=== PATIENT | female | born 2005 | race Two or more races ===

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

== ENCOUNTER 2024-10-11 14:25 | Emergency (ER) | payer SELFPAY ==
--- NOTE | ~2024-10-11 | XR_ITS ---
EXAMINATION: XR chest 2V Exam Date/Time: 10/11/2024 15:18 CDT HISTORY: syncopal episode Comparison: 07/03/2015. RESULT: Lines, tubes, and devices: None. Lungs and pleura: Mild patchy left basilar airspace disease with partial loss of the hemidiaphragm s hadow in the lateral view. Cardiomediastinal silhouette: Stable. Other: No acute osseous or upper abdominal finding. IMPRESSION: Patchy subsegmental left basilar atelectasis/consolidation. Aspiration could be considered given the history of syncope. Reviewed, dictated and finalized at location K.
--- OUTSIDE RECORDS SUMMARY | 2024-10-11 14:26 | XMS_ITS | Clinical Summary ---
Author Organization [facility] Address [address] [place] [address] Care Team Providers Care Senior Technical Program Manager Name Role Phone Yvonne Oneill MD Primary Care Provider Source Comments [facility] [employer],non-owned Affiliates and Associated Physician Practices is amultiple site organization consisting of ambulatory clinics and hospital sitesin [place], [place], [place] and [place]. This disclosure is being madepursuant to the Care Everywhere program and may not contain all information available regarding this patient. Last updated 18.[facility] [employer] Allergies Active Allergy Reactions Criticality Noted Date Comments Shellfish Allergy Anaphylaxis High 05/17/2022 Medications * Be aware that medications may not be up to date on this document. Alwaysverify current medications with the patient. Medication Sig Dispensed Refills Start Date End Date Status Vit-DSS-Fe Fum-FA ( vitamin with iron) tablet Take 1 (one) tablet by mouth once daily 60 tablet 1 05/23/2022 Active oseltamivir (Tamiflu) 75 MG capsule Take 1 (one) capsule by mouth every 12 hours 1 capsule 05/23/2022 Active Active Problems Problem Noted Date Diagnosed Date Adjustment disorder with anxiety 05/18/2022 History of bipolar disorder 05/18/2022 Encounter for supervision of low-risk , antepartum 05/17/2022 Overview (05/30/2022): sma carrier screen neg Social History Tobacco Use Types Packs/Day Years Used Date Smoking Tobacco: Never Smokeless Tobacco: Never Tobacco Cessation:Counseling Given: Not Answered Alcohol Use Standard Drinks/Week Comments Not Currently 0 (1 standard drink = 0.6 oz pur e alcohol) Overall Financial Resource Strain (CARDIA) Answe r Date Recorded How hard is it for you to pa y for the very basics like food, housing, medical care, and heating? Hard 05/17/2022 Hunger Vital Sign Answer Date Recorded Within the past 12 months, y ou worried that your food would run out before you got the money to buy more. Often true 05/17/20 22 Within the past 12 months, t he food you bought just didn't last and you didn't have money to get more. Often true 05/17/2022 PRAPARE - Transportation Answer Date Re corded In the past 12 months, has l ack of transportation kept you from medical appointments or from getting medications? Yes 03/2022 In the past 12 months, has l ack of transportation kept you from meetings, work, or from getting things needed for daily living? Yes 05/17/2022 Housing Stability Vital Sign Answer Thomas e Recorded In the last 12 months, was t here a time when you were not able to pay the mortgage or rent on time? Yes 05/17/2022 In the last 12 months, how many places have you lived? 10 05/17/2022 In the last 12 months, was t here a time when you did not have a steady place to sleep or slept in a skilled nursing (including now)? Yes 05/17/2022 Sex and Gender Information Value Date Recorded Sex Assigned at Not on file Gender Identity Not on file Sexual Orientation Not on file Last Filed Vital Signs Vital Sign Reading Time Taken Comments Blood Pressure 101/62 05/23/2022 9:00 AM BECK TENDER Pulse 85 05/23/2022 9:00 AM BECK TENDER Temperature 37 C (98.6 F) 05/23/2022 9:00 AM BECK TENDER Respiratory Rate 16 05/23/2022 9:00 AM BECK TENDER Oxygen Saturation 99% 05/23/2022 9:00 AM BECK TENDER Inhaled Oxygen Concentration - - Weight 60.5 kg (133 lb 6.4 oz) 05/17/2022 1:55 P M BECK TENDER Height 157.5 cm (5' 2 ) 05/17/2022 1:55 PM BECK TENDER Body Mass Index 24.4 05/17/2022 1:55 PM BECK TENDER Plan of Treatment Health Maintenance Due Date Last Done Comments HPV VACCINE (1 - 3-dose series) 2019 MENINGOCOCCAL (Group B) VACC INE SHARED DECISION-MAKING (1 of 2 - Standard) 2020 DTAP/TDAP/TD VACCINES (1 - Tdap) 2023 HEPATITIS B VACCINE (1 of 3 - 19+ 3-dose series) 2023 CHLAMYDIA/GONORRHEA SCREENING 05/17/2023 05/17/2022 COVID-19 VACCINE (1 - 2023-2 5 season) 2024 DEPRESSION SCREENING 07/09/2024 INFLUENZA VACCINE (Season Ended) 2025 03/21/20 16 ZOSTER VACCINE (1 of 2) 2054 HEPATITIS C SCREENING Completed 05/17/2022 HIV SCREENING Completed 05/17/2022 HIB VACCINE Aged Out No longer eligi ble based on patient's age to complete this topic MENINGOCOCCAL GROUPS A/C/Y/W VACCINE Aged Out No longer eligible b ased on patient's age to complete this topic PNEUMOCOCCAL VACCINE Aged Out No long er eligible based on patient's age to complete this topic Procedures Procedure Name Priority Date/Time Associated Diagnosis Comments HEPATITIS C ANTIBODY STAT 05/17/2022 6:01 PM BECK TENDER Encounter for supervision of low-risk , antepartum HIV-1 HIV-2 ANTIBODY + HIV P24 AG PANEL STAT 05/17/2022 6:01 PM BECK TENDER Encounter for supervision of low-risk , antepartum CHLAMYDIA + GC AMPLIFIED PROBE STAT 05/17/2022 5:02 PM BECK TENDER Encounter for supervision of low-risk , antepartum from Last 3 Months or Most Recently Relevant to Health Maintenance Results * HIV-1 HIV-2 ANTIBODY + HIV P24 AG PANEL (05/17/2022 6:01 PM BECK TENDER) HIV1/2 Ab + P24 Ag Non Reactive Non Reactive 05/17/2022 7:15 PM BECK TENDER [facility] Blood BLOOD SPECIMEN / Unknown Venipuncture / Unknown 05/17/2022 6:01 PM BECK TENDER 05/17/2022 6:20 PM BECK TENDER Narrative [facility] - 05/17/2022 7:15 PM BECK TENDER No Laboratory evidence of HIV infection. Liv Britton MD LAB - CHEMISTRY RASHAWN GUZMAN Performing Organization Address [facility] Co de Phone Number [facility] [address] [place] [phone] * HEPATITIS C ANTIBODY (05/17/2022 6:01 PM BECK TENDER) Pathologist [facility] HCV Antibody Screen Non Reactive Non Reactive 05/17/2022 7:18 PM BECK TENDER [facility] Blood BLOOD SPECIMEN / Unknown Venipuncture / Unknown 05/17/2022 6:01 PM BECK TENDER 05/17/2022 6:20 PM BECK TENDER [facility] - 05/17/2022 7:18 PM BECK TENDER Non Reactive - Antibodies to Hepatitis C virus (HCV) were not detected, result does not exclude early acute HCV infection. Liv Britton MD LAB - CHEMISTRY RASHAWN GUZMAN Performing Organization Address [facility] Co de Phone Number [facility] [address] [place] [phone] * CHLAMYDIA + GC AMPLIFIED PROBE (05/17/2022 5:02 PM BECK TENDER) [facility] Chlamydia Amplified Probe Negative Negative 05/18/2022 11:10 PM BECK TENDER [facility] GC Amplified Probe Negative Negative 05/18/2022 11:10 PM BECK TENDER [facility] Microbiology PART OF UTERINE CERVIX / Unknown Collection / Unknown 05/17/2022 5:02 PM BECK TENDER 05/17/2022 5:08 PM BECK TENDER [facility] - 05/18/2022 11:10 PM BECK TENDER Results based on detection/no detection of ribosomal RNA by amplified method. Liv Britton MD LAB - MICROBIOLOGY O RDERABLES Performing Organization Address [place]/[facility] Co de Phone Number [facility] [address] [place] [address], [facility] [phone] from Last 3 Months or Most Recently Relevant to Health Maintenance Advance Directives * Full Code (Latest Code Status on File) Date Activated Date Inactivated Comments 05/17/2022 5:49 PM 05/23/2022 2:08 PM Care Teams Senior Technical Program Manager Relationship Specialty Start Date End Date Yvonne Oneill MD [facility] [place], [place] [id number] PCP - General 05/19/22
--- NOTE | 2024-10-11 14:29 | ECG_ITS ---
Test Date: 2024-10-11 14:32:43 Measurements Intervals [place] Rate: 94 P: 62 [place]: 133 QRS: 73 QRSD: 81 T: 40 QT: 348 QTc: 436 Interpretive Statements SINUS RHYTHM BORDERLINE ST-T WAVE ABNORMALITY- ANT/INF LEADS BASELINE ARTIFACT- I, II, III, AVR, AVL ,AVF BORDERLINE ECG No previous ECG available for comparison Electronically Signed On 10-11-2024 14:49:51 CDT by Sylvain Brito D.O.
[2024-10-11 14:33] VITALS: BP 140/88; PULSE 110; RESP 14; TEMP 36.9; O2SAT 97
[2024-10-11 14:54] VITALS: BP 113/78; PULSE 69; PULSE 71; RESP 16; O2SAT 100
[2024-10-11 15:19] LABS: BEDSIDEPREGUCG Negative (Negative)
[2024-10-11 15:30] LABS: Basophils Percent Auto 0.7 % (0.2-1.2); Eosinophils Absolute Auto 0.2 K/mm3 (0-0.3); Eosinophils Percent Auto 3.2 % (0-4.4); Hematocrit 40.4 % (37.0-47.0); Hemoglobin 13.3 g/dL (12.0-15.0); Immature Granulocyte Absolute 0.01 K/mm3 (0.00-0.031); Immature Granulocyte Percent A 0.2 % (0-0.5); Lymphocytes Absolute Auto 1.37 K/mm3 (0.9-3.2); Lymphocytes Percent Auto 25.6 % (18.3-44.2); Mean Corpuscular HGB Conc 32.9 g/dl (32-36); Mean Corpuscular Hemoglobin 29.8 pg (26-34); Mean Corpuscular Volume 90.6 fl (80-100); Mean Platelet Volume 11.1 fl (7.4-10.4); Monocytes Absolute Auto 0.4 K/mm3 (0.1-0.6); Monocytes Percent Auto 6.5 % (2.6-8.5); Neutrophils Absolute Auto 3.4 K/mm3 (1.3-6.7); Neutrophils Percent Auto 63.8 % (45.5-73.1); Platelet Count Result 243 k/mm3 (150-375); Red Blood Count 4.46 M/mm3 (4.2-5.4); White Blood Count 5.4 K/mm3 (4.5-10.0)
[2024-10-11 15:38] LABS: Alanine Aminotransferase 14 U/L (6-35); Albumin Level 4.8 g/dL (3.5-5.1); Alkaline Phosphatase 79 U/L (38-126); Anion Gap 16 mmol/L (4-12); Aspartate Amino Transferase 22 U/L (14-36); Bilirubin,Total 1.3 mg/dL (0.2-1.3); Blood Urea Nitrogen 10 mg/dL (7-17); Calcium 9.3 mg/dL (8.4-10.2); Carbon Dioxide 22 mmol/L (22-30); Chloride 102 mmol/L (98-107); Estimated CRCL calculation 90 ml/min; Estimated Glomerular Filt Rate > 60; Glucose 87 mg/dL (65-110); Potassium 3.3 mmol/L (3.4-5.0); Sodium 140 mmol/L (137-145)
[2024-10-11 15:48] LABS: Add Urine Microscopic? YES; Appearance Urine Cloudy (Clear); Bacteria Urine None Seen /hpf; Bilirubin Urine 2+ (Negative); Blood Urine Negative (Negative); Color Urine Dark Yellow (Yellow); Glucose Urine UA Negative (Negative); Ketones Urine 3+ mg/dL (Negative); Leukocyte Esterase Ur Negative LEU/UL (Negative); Need Manual Microscopic Reviewed; Nitrate Urine Negative (Negative); Protein Urine 1+ mg/dL (Negative); RBC Urine 0-2 /hpf (0-2); Specific Grav Ur 1.031 (1.001-1.035); Squamous Epithelial Cell Urine Moderate /hpf (Few); WBC Urine 0-5 /hpf (0-3); pH Urine 5.5 (5.0-9.0)
[2024-10-11 16:35] VITALS: BP 132/78; PULSE 77; RESP 19; O2SAT 100
[2024-10-11] MEDS: POTASSIUM CHLORIDE 20 MEQ ER TABLET 40 MEQ PO (17:33)
[2024-10-11] MEDS: SODIUM CHLORIDE 0.9% IV 1,000 ML 999 ML IV CONT (17:33)
[2024-10-11 17:34] VITALS: BP 106/82; PULSE 95; RESP 20; O2SAT 99
--- OUTSIDE RECORDS SUMMARY | 2024-10-11 17:44 | XMS_ITS | Clinical Summary ---
Author Organization [facility] Address [address] [place] [address] Care Team Providers Care Bottoming Machine Operator Name Role Phone Yvonne Oneill MD Primary Care Provider [phone] Source Comments [facility],non-owned Affiliates and Associated Physician Practices is amultiple site organization consisting of ambulatory clinics and hospital sitesin [place], [place], [place] and [place]. This disclosure is being madepursuant to the Care Everywhere program and may not contain all information available regarding this patient. Last updated 18.[facility] Allergies Active Allergy Reactions Criticality Noted Date [...] place to sleep or slept in a long term (including now)? Yes 05/17/2022 Sex and Gender Information Value Date Recorded Sex Assigned at Not on file Gender Identity Not on file Sexual Orientation Not on file Last Filed Vital Signs Vital Sign Reading Time Taken Comments Blood Pressure 101/62 05/23/2022 9:00 AM AUTOMOBILE SERVICE STATION MANAGER Pulse 85 05/23/2022 9:00 AM AUTOMOBILE SERVICE STATION MANAGER Temperature 37 C (98.6 F) 05/23/2022 9:00 AM AUTOMOBILE SERVICE STATION MANAGER Respiratory Rate 16 05/23/2022 9:00 AM AUTOMOBILE SERVICE STATION MANAGER Oxygen Saturation 99% 05/23/2022 9:00 AM AUTOMOBILE SERVICE STATION MANAGER Inhaled Oxygen Concentration - - Weight 60.5 kg (133 lb 6.4 oz) 05/17/2022 1:55 P M AUTOMOBILE SERVICE STATION MANAGER Height 157.5 cm (5' 2 ) 05/17/2022 1:55 PM AUTOMOBILE SERVICE STATION MANAGER Body Mass Index 24.4 05/17/2022 1:55 PM AUTOMOBILE SERVICE STATION MANAGER Plan of Treatment Health Maintenance Due Date [...] HEPATITIS C ANTIBODY STAT 05/17/2022 6:01 PM AUTOMOBILE SERVICE STATION MANAGER Encounter for supervision of low-risk , antepartum HIV-1 HIV-2 ANTIBODY + HIV P24 AG PANEL STAT 05/17/2022 6:01 PM AUTOMOBILE SERVICE STATION MANAGER Encounter for supervision of low-risk , antepartum CHLAMYDIA + GC AMPLIFIED PROBE STAT 05/17/2022 5:02 PM AUTOMOBILE SERVICE STATION MANAGER Encounter for supervision of low-risk , antepartum from Last 3 Months or Most Recently Relevant to Health Maintenance Results * HIV-1 HIV-2 ANTIBODY + HIV P24 AG PANEL (05/17/2022 6:01 PM AUTOMOBILE SERVICE STATION MANAGER) HIV1/2 Ab + P24 Ag Non Reactive Non Reactive 05/17/2022 7:15 PM AUTOMOBILE SERVICE STATION MANAGER [facility] Blood BLOOD SPECIMEN / Unknown Venipuncture / Unknown 05/17/2022 6:01 PM AUTOMOBILE SERVICE STATION MANAGER 05/17/2022 6:20 PM AUTOMOBILE SERVICE STATION MANAGER Narrative [facility] - 05/17/2022 7:15 PM AUTOMOBILE SERVICE STATION MANAGER No Laboratory evidence of HIV infection. Liv Britton MD LAB - CHEMISTRY RASHAWN GUZMAN Performing Organization Address [facility] Co de Phone Number [facility] [address] [place] [id number] * HEPATITIS C ANTIBODY (05/17/2022 6:01 PM AUTOMOBILE SERVICE STATION MANAGER) Pathologist [facility] HCV Antibody Screen Non Reactive Non Reactive 05/17/2022 7:18 PM AUTOMOBILE SERVICE STATION MANAGER [facility] Blood BLOOD SPECIMEN / Unknown Venipuncture / Unknown 05/17/2022 6:01 PM AUTOMOBILE SERVICE STATION MANAGER 05/17/2022 6:20 PM AUTOMOBILE SERVICE STATION MANAGER [facility] - 05/17/2022 7:18 PM AUTOMOBILE SERVICE STATION MANAGER Non Reactive - Antibodies to Hepatitis C virus (HCV) were not detected, result does not exclude early acute HCV infection. Liv Britton MD LAB - CHEMISTRY RASHAWN GUZMAN Performing Organization Address [facility] Co de Phone Number [facility] [address] [place] [phone] * CHLAMYDIA + GC AMPLIFIED PROBE (05/17/2022 5:02 PM AUTOMOBILE SERVICE STATION MANAGER) [facility] Chlamydia Amplified Probe Negative Negative 05/18/2022 11:10 PM AUTOMOBILE SERVICE STATION MANAGER [facility] GC Amplified Probe Negative Negative 05/18/2022 11:10 PM AUTOMOBILE SERVICE STATION MANAGER [facility] Microbiology PART OF UTERINE CERVIX / Unknown Collection / Unknown 05/17/2022 5:02 PM AUTOMOBILE SERVICE STATION MANAGER 05/17/2022 5:08 PM AUTOMOBILE SERVICE STATION MANAGER [facility] - 05/18/2022 11:10 PM AUTOMOBILE SERVICE STATION MANAGER Results based on detection/no detection of ribosomal RNA by amplified method. Liv Britton MD LAB - MICROBIOLOGY O RDERABLES Performing Organization Address City/[facility] Co de Phone Number [facility] [address] [place] [address], [facility] [phone] from Last 3 Months or Most Recently Relevant to Health Maintenance Advance Directives * Full Code (Latest Code Status on File) Date Activated Date Inactivated Comments 05/17/2022 5:49 PM 05/23/2022 2:08 PM Care Teams Bottoming Machine Operator Relationship Specialty Start Date End Date Yvonne Oneill MD [facility] [place], [place] [id number] PCP - General 05/19/22
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
[2024-10-11 20:06] LABS: Trichomonas Vag PCR NOT DETECTED (NOT DETECTE)
[2024-10-11 20:28] LABS: Chlamydia trachomatis NOT DETECTED (NOT DETECTE); Neisseria gonorrhoeae PCR NOT DETECTED (NOT DETECTE)
== END 2024-10-11 18:57 | disposition home or self-care (01) ==
PROVIDERS: Emergency Medicine; Family Medicine; Emergency Provider Physician Assistant
DX: R55 Syncope and collapse (principal); R94.31 Abnormal electrocardiogram [ECG] [EKG]
CPT/HCPCS: 36415; 71046; 80053; 81001; 81025; 85025; 87491; 87591; 87661; 93005; 96360; 99284; A9270; J7030

== ENCOUNTER 2025-02-10 09:06 | Emergency (ER) | payer OTHER, SELFPAY ==
[2025-02-10 09:10] VITALS: BP 113/82; PULSE 74; RESP 16; TEMP 36.8; O2SAT 100
--- OUTSIDE RECORDS SUMMARY | 2025-02-10 09:22 | XMS_ITS | Clinical Summary ---
Author Organization [facility] Address [address] [place] [address] Care Team Providers Care Environmental Educator Name Role Phone Yvonne Oneill MD Primary Care Provider [phone] Source Comments [facility],non-owned Affiliates and Associated Physician Practices is amultiple site organization consisting of ambulatory clinics and hospital sitesin [place], [place], [place] and [place]. This disclosure is being madepursuant to the Care Everywhere program and may not contain all information available regarding this patient. Last updated 18.[facility] Allergies Active Allergy Reactions Criticality Noted Date Comments Shellfish Allergy Anaphylaxis High 05/17/2022 Medications * This document contains information received from the source organization and may not represent a complete record from that organization. * Be aware that medications may not be up to date on this document. Alwaysverify current medications with the patient. Vit-DSS-Fe Fum-FA ( vitamin with iron) tablet [...] place to sleep or slept in a usp (including now)? Yes 05/17/2022 Comments No Sex and Gender Information Value Date Recorded Sex Assigned at Not on file Legal Sex Female 5:43 AM APPLIED BEHAVIOR SPECIALIST Gender Identity Not on file Sexual Orientation Not on file Last Filed Vital Signs Vital Sign Reading Time Taken Comments Blood Pressure 101/62 05/23/2022 9:00 AM APPLIED BEHAVIOR SPECIALIST Pulse 85 05/23/2022 9:00 AM APPLIED BEHAVIOR SPECIALIST Temperature 37 C (98.6 F) 05/23/2022 9:00 AM APPLIED BEHAVIOR SPECIALIST Respiratory Rate 16 05/23/2022 9:00 AM APPLIED BEHAVIOR SPECIALIST Oxygen Saturation 99% 05/23/2022 9:00 AM APPLIED BEHAVIOR SPECIALIST Inhaled Oxygen Concentration - - Weight 60.5 kg (133 lb 6.4 oz) 05/17/2022 1:55 P M APPLIED BEHAVIOR SPECIALIST Height 157.5 cm (5' 2) 05/17/2022 1:55 PM APPLIED BEHAVIOR SPECIALIST Body Mass Index 24.4 05/17/2022 1:55 PM APPLIED BEHAVIOR SPECIALIST Plan of Treatment Health Maintenance Due Date [...] season) 2024 DEPRESSION SCREENING 07/09/2024 INFLUENZA VACCINE (#1) 2025 03/21/2016 ZOSTER VACCINE (1 of 2) 2054 HEPATITIS [...] HEPATITIS C ANTIBODY STAT 05/17/2022 6:01 PM APPLIED BEHAVIOR SPECIALIST Encounter for supervision of low-risk , antepartum HIV-1 HIV-2 ANTIBODY + HIV P24 AG PANEL STAT 05/17/2022 6:01 PM APPLIED BEHAVIOR SPECIALIST Encounter for supervision of low-risk , antepartum CHLAMYDIA + GC AMPLIFIED PROBE STAT 05/17/2022 5:02 PM APPLIED BEHAVIOR SPECIALIST Encounter for supervision of low-risk , antepartum from Last 3 Months or Most Recently Relevant to Health Maintenance Results * HIV-1 HIV-2 ANTIBODY + HIV P24 AG PANEL (05/17/2022 6:01 PM APPLIED BEHAVIOR SPECIALIST) HIV1/2 Ab + P24 Ag Non Reactive Non Reactive 05/17/2022 7:15 PM APPLIED BEHAVIOR SPECIALIST [facility] Blood BLOOD SPECIMEN / Unknown Venipuncture / Unknown 05/17/2022 6:01 PM APPLIED BEHAVIOR SPECIALIST 05/17/2022 6:20 PM APPLIED BEHAVIOR SPECIALIST Narrative [facility] - 05/17/2022 7:15 PM APPLIED BEHAVIOR SPECIALIST No Laboratory evidence of HIV infection. Liv Brtiton MD LAB - CHEMISTRY ORDERABLES Final Result Performing Organization Address City/[facility]/ZIP Co de Phone Number [facility] [address] [place] [address] [phone] * HEPATITIS C ANTIBODY (05/17/2022 6:01 PM APPLIED BEHAVIOR SPECIALIST) [facility] HCV Antibody Screen Non Reactive Non Reactive 05/17/2022 7:18 PM APPLIED BEHAVIOR SPECIALIST [facility] Blood BLOOD SPECIMEN / Unknown Venipuncture / Unknown 05/17/2022 6:01 PM APPLIED BEHAVIOR SPECIALIST 05/17/2022 6:20 PM APPLIED BEHAVIOR SPECIALIST Narrative [facility] - 05/17/2022 7:18 PM APPLIED BEHAVIOR SPECIALIST Non Reactive - Antibodies to Hepatitis C virus (HCV) were not detected, result does not exclude early acute HCV infection. Liv Britton MD LAB - CHEMISTRY ORDERABLES Final Result Performing Organization Address [facility] Co de Phone Number [facility] [address] [place] [address] * CHLAMYDIA + GC AMPLIFIED PROBE (05/17/2022 5:02 PM APPLIED BEHAVIOR SPECIALIST) [facility] Chlamydia Amplified Probe Negative Negative 05/18/2022 11:10 PM APPLIED BEHAVIOR SPECIALIST [facility] GC Amplified Probe Negative Negative 05/18/2022 11:10 PM APPLIED BEHAVIOR SPECIALIST [facility] Microbiology PART OF UTERINE CERVIX / Unknown Collection / Unknown 05/17/2022 5:02 PM APPLIED BEHAVIOR SPECIALIST 05/17/2022 5:08 PM APPLIED BEHAVIOR SPECIALIST Narrative [facility] - 05/18/2022 11:10 PM APPLIED BEHAVIOR SPECIALIST Results based on detection/no detection of ribosomal RNA by amplified method. Liv Britton MD LAB - MICROBIOLOGY ORDERABLES Fi nal Result Performing Organization Address City/[facility]/ZIP Co de Phone Number [facility] [address] [place] [address], [facility] [phone] from Last 3 Months or Most Recently Relevant to Health Maintenance Insurance [id number] [facility] Advance Directives * Full Code (Latest Code Status on File) Date Activated Date Inactivated Comments 05/17/2022 5:49 PM 05/23/2022 2:08 PM Care Teams Environmental Educator Relationship Specialty Start Date End Date Yvonne Oneill MD [address] [place] [id number] PCP - General 05/19/22
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
--- OUTSIDE RECORDS SUMMARY | 2025-02-10 10:19 | XMS_ITS | Clinical Summary ---
Author Organization [facility] Address [address] [place] [address] Care Team Providers Care Community Dietitian Name Role Phone Yvonne Oneill MD Primary Care Provider [phone] Source Comments [facility],non-owned Affiliates and Associated Physician Practices is amultiple site organization consisting of ambulatory clinics and hospital sitesin [place], [place], [place] and [place]. This disclosure is being madepursuant to the Care Everywhere program and may not contain all information available regarding this patient. Last updated 18.[facility] Allergies Active Allergy Reactions Criticality Noted Date [...] place to sleep or slept in a senior living (including now)? Yes 05/17/2022 Comments No Sex and Gender Information Value Date Recorded Sex Assigned at Not on file Legal Sex Female 5:43 AM RESIDENT IN DIAGNOSTIC RADIOLOGY Gender Identity Not on file Sexual Orientation Not on file Last Filed Vital Signs Vital Sign Reading Time Taken Comments Blood Pressure 101/62 05/23/2022 9:00 AM RESIDENT IN DIAGNOSTIC RADIOLOGY Pulse 85 05/23/2022 9:00 AM RESIDENT IN DIAGNOSTIC RADIOLOGY Temperature 37 C (98.6 F) 05/23/2022 9:00 AM RESIDENT IN DIAGNOSTIC RADIOLOGY Respiratory Rate 16 05/23/2022 9:00 AM RESIDENT IN DIAGNOSTIC RADIOLOGY Oxygen Saturation 99% 05/23/2022 9:00 AM RESIDENT IN DIAGNOSTIC RADIOLOGY Inhaled Oxygen Concentration - - Weight 60.5 kg (133 lb 6.4 oz) 05/17/2022 1:55 P M RESIDENT IN DIAGNOSTIC RADIOLOGY Height 157.5 cm (5' 2) 05/17/2022 1:55 PM RESIDENT IN DIAGNOSTIC RADIOLOGY Body Mass Index 24.4 05/17/2022 1:55 PM RESIDENT IN DIAGNOSTIC RADIOLOGY Plan of Treatment Health Maintenance Due Date [...] HEPATITIS C ANTIBODY STAT 05/17/2022 6:01 PM RESIDENT IN DIAGNOSTIC RADIOLOGY Encounter for supervision of low-risk , antepartum HIV-1 HIV-2 ANTIBODY + HIV P24 AG PANEL STAT 05/17/2022 6:01 PM RESIDENT IN DIAGNOSTIC RADIOLOGY Encounter for supervision of low-risk , antepartum CHLAMYDIA + GC AMPLIFIED PROBE STAT 05/17/2022 5:02 PM RESIDENT IN DIAGNOSTIC RADIOLOGY Encounter for supervision of low-risk , antepartum from Last 3 Months or Most Recently Relevant to Health Maintenance Results * HIV-1 HIV-2 ANTIBODY + HIV P24 AG PANEL (05/17/2022 6:01 PM RESIDENT IN DIAGNOSTIC RADIOLOGY) HIV1/2 Ab + P24 Ag Non Reactive Non Reactive 05/17/2022 7:15 PM RESIDENT IN DIAGNOSTIC RADIOLOGY [facility] Blood BLOOD SPECIMEN / Unknown Venipuncture / Unknown 05/17/2022 6:01 PM RESIDENT IN DIAGNOSTIC RADIOLOGY 05/17/2022 6:20 PM RESIDENT IN DIAGNOSTIC RADIOLOGY Narrative [facility] - 05/17/2022 7:15 PM RESIDENT IN DIAGNOSTIC RADIOLOGY No Laboratory evidence of HIV infection. Liv Britton MD LAB - CHEMISTRY ORDERABLES Final Result Performing Organization Address City/[facility] [place]/ZIP Co de Phone Number [facility] [address] [place] [address] [phone] * HEPATITIS C ANTIBODY (05/17/2022 6:01 PM RESIDENT IN DIAGNOSTIC RADIOLOGY) [facility] HCV Antibody Screen Non Reactive Non Reactive 05/17/2022 7:18 PM RESIDENT IN DIAGNOSTIC RADIOLOGY [facility] Blood BLOOD SPECIMEN / Unknown Venipuncture / Unknown 05/17/2022 6:01 PM RESIDENT IN DIAGNOSTIC RADIOLOGY 05/17/2022 6:20 PM RESIDENT IN DIAGNOSTIC RADIOLOGY Narrative [facility] - 05/17/2022 7:18 PM RESIDENT IN DIAGNOSTIC RADIOLOGY Non Reactive - Antibodies to Hepatitis C virus (HCV) were not detected, result does not exclude early acute HCV infection. Liv Britton MD LAB - CHEMISTRY ORDERABLES Final Result Performing Organization Address [facility] [place]/[facility] Co de Phone Number [facility] [address] [place] [address] * CHLAMYDIA + GC AMPLIFIED PROBE (05/17/2022 5:02 PM RESIDENT IN DIAGNOSTIC RADIOLOGY) [facility] Chlamydia Amplified Probe Negative Negative 05/18/2022 11:10 PM RESIDENT IN DIAGNOSTIC RADIOLOGY [facility] GC Amplified Probe Negative Negative 05/18/2022 11:10 PM RESIDENT IN DIAGNOSTIC RADIOLOGY [facility] Microbiology PART OF UTERINE CERVIX / Unknown Collection / Unknown 05/17/2022 5:02 PM RESIDENT IN DIAGNOSTIC RADIOLOGY 05/17/2022 5:08 PM RESIDENT IN DIAGNOSTIC RADIOLOGY Narrative [facility] - 05/18/2022 11:10 PM RESIDENT IN DIAGNOSTIC RADIOLOGY Results based on detection/no detection of ribosomal RNA by amplified method. Liv Britton MD LAB - MICROBIOLOGY ORDERABLES Fi nal Result Performing Organization Address City/[facility] [place]/ZIP Co de Phone Number [facility] [address] [place] [address], [facility] [phone] from Last 3 Months or Most Recently Relevant to Health Maintenance Insurance [id number] [facility] Advance Directives * Full Code (Latest Code Status on File) Date Activated Date Inactivated Comments 05/17/2022 5:49 PM 05/23/2022 2:08 PM Care Teams Community Dietitian Relationship Specialty Start Date End Date Yvonne Oneill MD [address] [place] [id number] PCP - General 05/19/22
[2025-02-10 10:42] LABS: Hepatitis B Surface Antigen Negative (Negative)
[2025-02-10 11:45] LABS: HIV 1/2 Ab P24 Ag Result Negative (Negative)
== END 2025-02-10 09:55 | disposition home or self-care (01) ==
LOC: ANHED 09:55
PROVIDERS: Emergency Provider Physician Assistant
DX: S61.431A Puncture wound without foreign body of right hand, initial encounter (principal); W46.1XXA Contact with contaminated hypodermic needle, initial encounter
CPT/HCPCS: 36415; 86703; 86803; 87340; 99283; G0432

== ENCOUNTER 2025-04-02 20:24 | Observation (INO) | payer SELFPAY ==
--- OUTSIDE RECORDS SUMMARY | 2025-04-01 02:22 | XMS_ITS | Encounter Summary ---
Author Organization [facility] Healthcare Address [address] [place] [address] Care Team Providers Care Label Stitcher Name Role Phone No, Physician Primary Care Provider [phone] Reason for Visit * Reason Comments Vaginal Bleeding Abdominal Pain Encounter Details Date Type Department Care Team (Late st Contact Info) Description 04/01/2025 2:22 AM CDT - 04/01/2025 5:53 AM CDT Emergency [address] [address] Gloria Denise MD [address] [place] [id number] Incomplete therapeutic (Primary Dx) Discharge Disposition: Discharge to home or self care Social History Tobacco Use Types Packs/Day Years Used Date Smoking Tobacco: Never Assessed Personal Safety Answer Date Recorded Have you ever been in or are you currently in a harmful physical or emotional relationship or is someone making you feel afraid or unsafe? Denies 04/01/2025 Comments Unknown Sex and Gender Information Value Date Recorded Sex Assigned at Not on file Legal Sex Female 1:58 AM CDT Gender Identity Not on file Sexual Orientation Not on file documented as of this encounter Last Filed Vital Signs Vital Sign Reading Time Taken Comments Blood Pressure 103/67 04/01/2025 5:35 AM CDT Pulse 78 04/01/2025 5:35 AM CDT Temperature 37 C (98.6 F) 04/01/2025 2:00 AM CDT Respiratory Rate 18 04/01/2025 5:35 AM CDT Oxygen Saturation 100% 04/01/2025 5:35 AM CDT Inhaled Oxygen Concentration - - Weight 63.4 kg (139 lb 12.4 oz) 04/01/2025 2:06 AM CDT Height - - Body Mass Index - - documented in this encounter Discharge Instructions * Discharge Instructions* Gloria Denise MD - 04/01/2025 5:44 AM CDT As we discussed, return to the emergency department for any signs or symptoms of infection. [place] toreturn to the emergency department for severe uncontrolled pain, heavy bleeding leading to lightheadedness, shortness of breath, or feeling as though he may pass out. Okay to take the additional misoprostol dose that was prescribed to you by the clinic last week if you continue to have heavy vaginal bleeding. Please follow up with Gynecology either at the clinic where you are previously seen or establish care with a new Independent Living Advisor who can discuss family planning in the future and you take care of regular health maintenance/preventative care. documented in this encounter Medications at Time of Discharge ibuprofen (ADVIL,MOTRIN) 600 mg tablet Take 1 tablet (600 mg total) by mouth every 6 (six) hours as needed for pain 30 tablet 04/01/2025 documented as of this encounter Ordered Prescriptions Prescription Sig Dispense Quantity Refills Last Filled Start Date End Date ibuprofen (ADVIL,MOTRIN) 600 mg tablet Take 1 tablet (600 mg total) by mouth every 6 (six) hours as needed for pain 30 tablet 04/01/2025 documented in this encounter Discharge Disposition Disposition Code Departure Means Destination Comment s Discharge to home or self care documented in this encounter ED Notes * Gloria Denise MD - 04/01/2025 3:03 AM CDT Triage Chief Complaint: Chief Complaint Patient presents with Vaginal Bleeding Abdominal Pain Portions of the record may have been created with voice recognition software. Occasional wrong-word or '[id number]' substitutions may have occurred due to the inherent limitations of voice recognition software. Read the chart carefully and recognize, using context, where substitutions have occurred. H&P: Krystle Landers is a 19 y.o. female that has otherwise healthy and takes no medications on a regular basis presents for painful pelvic cramping and vaginal bleeding. at 8wga by LMP and US last week at the [facility], and 9 days after 1st dose of medication for elective medical , LMP January 05. She was given her 1st pill on that day, 9 days ago. The following day she took 4 more pills. That day she started having bleeding. That has very heavy the through the last week. It seemed to be getting better but then on the that is started becoming heavy again. She has waves of severe crampy abdominal pain and heavy bleeding. She has been soaking through pads. Tonight that has unbearable. She took 3 600 mg ibuprofen and extra-strength Tylenol and still did not have pain control. She does not recall seeing anything that looks like products of conception. She called the after hours/emergency line at the [facility] who told her to go to the emergency department. She just moved back to this area. She does not have a primary care doctor or community development aide with whom she is established. Past medical/past surgical/meds: Nursing Notes Reviewed. Physical Exam: ED Triage Vitals Temp Pulse Resp BP SpO2 04/01/250 04/01/250 04/01/250 04/01/2519904/01/25199 37 ??C (98.6 ??F) 82 18 139/97 100 % Temp src Heart Rate Source Patient Position BP Location FiO2 (%) 04/01/25 0200 04/01/250 04/01/250 04/01/250 -- Oral Monitor Sitting Right arm Height Height Method Weight Weight Method -- -- 04/01/25 0206 04/01/25205 63.4 kg (139 lb 12.4 oz) Standing scale GENERAL APPEARANCE: Awake and alert. No acute distress. HEAD: Atraumatic. EYES: Sclera anicteric. EOMI. ENT: Tolerates saliva. NECK: Supple. Trachea midline. HEART: RRR LUNGS: Respirations unlabored. ABDOMEN: Soft. Non-tender. No guarding or rebound. EXTREMITIES: No acute deformities. SKIN: Warm and dry. NEUROLOGICAL: No gross facial drooping. Moves all 4 extremities spontaneously. Normal speech and mental status. No ataxia noted. PSYCHIATRIC: Normal mood. Pelvic exam with female nurse agricultural engineering technologist: Two large clots removed from the vaginal vault. Cervix notobviously open and no retained products noted within the cervix. It isn't continue to fill up with blood. No heavy or brisk bleeding. I have reviewed and interpreted all of the currently available lab results from this visit (if applicable): Labs Reviewed CBC WITH AUTO DIFFERENTIAL - Abnormal Result Value WBC 11.37 (*) Hgb 11.1 (*) Hct 32.8 (*) Plt 231 MPV 10.3 RBC 3.65 (*) MCV 89.9 MCH 30.4 MCHC 33.8 RDW CV 11.8 RDW SD 38.5 NRBC abs 0.00 COMPREHENSIVE METABOLIC PANEL - Abnormal Sodium 137 Potassium, pl 3.8 Chloride 104 CO2 22 Anion gap 11 BUN 15 Creatinine 0.61 Glucose 112 Calcium 9.3 Bilirubin, total 0.3 Protein, pl 6.9 Albumin 4.4 Alk phos 54 ALT <5 (*) AST 16 HCG, BLOOD, QUANTITATIVE - Abnormal hCG, quant 21,383.0 (*) DIFFERENTIAL AUTO - Abnormal Neutrophil abs 8.75 (*) Imm gran abs 0.03 Lymphocyte abs 1.75 Monocyte abs 0.57 Eosinophil abs 0.22 Basophil abs 0.05 Neutrophil pct 77.0 Imm gran pct 0.3 Lymphocyte pct 15.4 Monocyte pct 5.0 Eosinophil pct 1.9 Basophil pct 0.4 TYPE AND SCREEN ABO/RH ABO/Rh O Positive Narrative: Has the patient had Daratumumab or Isatuximab in the past 6 months?->Unknown ANTIBODY SCREEN Elizabeth, indirect, Gel Interpretation Negative ABSC Narrative: Has the patient had Daratumumab or Isatuximab in the past 6 months?->Unknown B ABO / RH CONFIRMATION TESTING ABO/Rh Confirmation O Positive EGFR eGFR >90 Radiographs (if obtained): Report Reviewed: No orders to display EKG (if obtained): (All EKGs are interpreted by myself in the absence of a zipper ironer) Procedures ED course/MDM: External chart review: (details typically documented under ED workup or in chart/outside record review above in my note, if obtained) History obtained by: (Typically documented in the HPI section, sometimes in ED course when obtainedfrom additional historians but not at the initial time of patient presentation.) Discussion of management: (typically conversations time stamped and documented in ED course), Independent interpretation studies: (typically documented in ED course and please note that labs and Radiology reads obtained in the ED and listed above have been reviewed) Vitals: 04/01/25 0435 04/01/25 0440 04/01/25 0511 04/01/25 0535 BP: 101/53 103/67 BP Location: Patient Position: Pulse: 74 75 86 78 Resp: Temp: TempSrc: SpO2: 100% 100% 100% Weight: ED Course as of 04/01/25 0607 Time: 04/01 407 Value: HCG, quant(!): 21,383.0 Comment: POCUS: Either very thickened endometrial stripe or heterogeneous material in the uterus but no IUP. By: Gloria Denise MD Time: 04/01 429 Value: Hgb(!): 11.1 Comment: No previous for comparison. Hemodynamically stable. No indication for blood transfusion. By: Gloria Denise MD Time: 04/01 430 Value: Pulse: 82 Comment: No tachycardia By: Gloria Denise MD Time: 04/01 430 Value: BP: 139/97 Comment: Reassuring vital signs By: Gloria Denise MD Time: 04/01 430 Value: ABO/Rh Confirmation: O Positive Comment: Rh positive no indication for RhoGAM By: Gloria Denise MD Time: 04/01 441 Comment: I spoke to on-call community development aide, Dr. Rothman, she said okay to offer 800 mg misoprostol per vagina, have her lay flat for an hour. Since she is hemodynamically stable. No indication to go [place] for D and C. She said that either she could follow up in the office in case she does need additional intervention. She said that if the patient really wants she could stay in the emergency department for pelvic ultrasound to evaluate for retained products. She said that it just depends on how the patient is feeling. By: Gloria Denise MD Time: 04/01 0501 Value: ABO/Rh Confirmation: O Positive Comment: No indication for RhoGAM By: Gloria Denise MD Time: 04/01 544 Comment: I discussed options with the patient. She feels much better and has since she received medications sometime after 3:00 a.m.. She does not have active heavy bleeding right now and that has remained hemodynamically stable. We discussed risks benefits alternatives. She feels comfortable beingdischarged home. When I was talking to her about the community development aide on-call recommendations or offering her 600 mg misoprostol, she said she actually has a 800 mg dose of misoprostol at home that she was instructed she could take if needed, but she did not take that extra dose. We discussed indications for that medication. But since she is not having heavy or active bleeding pain right now. We willhold off giving dose here in the emergency department. We discussed signs and symptoms that would necessitate return visit to the emergency department. By: Gloria Denise MD Time: 04/01 545 Value: HCG, quant(!): 21,383.0 Comment: Abdominal exam is benign. Unlikely some other cause of pelvic pain or cramping such as UTIor appendicitis. test that has positive, that has expected. Patient given a copy of her results. In case serial hCG needs to be turned it going forward. By: Gloria Denise MD Clinical Impression: 1. Incomplete therapeutic Disposition: Discharge (Please note that portions of this note may have been completed with a voice recognition program. Bush Regenerator errors occur. Please contact me for any clarification.) Gloria Denise MD 04/01/25 0607 * Jeremias Millard RN - 04/01/2025 2:10 AM CDT Pt came in ED, ambulatory. 7 weeks AOG with c/o Vaginal Bleeding accompanied by N/V, lower abdominal and lower back pain started 3 days ago, bleeding through pads and pants. Uses 5-6 fully soak pads a day. Pt reports she took an pill 03/23/25 and started bleeding heavily 3 days ago. Pt reports pain scale 9/10, intermittent cramping and stabbing.Pt alert and oriented x 4 documented in this encounter Miscellaneous Notes * Plan of Care - Ebony Smyth - 04/01/2025 5:53 AM CDT Community Sales Support Coordinator reached to patient via phone to assess current PCP needs. CRC left her contact information requesting a call back. NATHANIEL Mccullough Community Sales Support Coordinator [phone] documented in this encounter Plan of Treatment Not on file documented as of this encounter Procedures Procedure Name Priority Date/Time Associated Diagnosis Comments B ABO / RH CONFIRMATION TESTING STAT 04/01/2025 2:27 AM CDT EGFR STAT 04/01/2025 2:19 AM CDT DIFFERENTIAL AUTO STAT 04/01/2025 2:1 9 AM CDT CBC WITH AUTO DIFFERENTIAL STAT 04/01/2025 2:19 AM CDT ABO/RH STAT 04/01/2025 2:19 AM CDT ANTIBODY SCREEN STAT 04/01/2025 2:19 AM CDT TYPE AND SCREEN STAT 04/01/2025 2:19 AM CDT HCG, BLOOD, QUANTITATIVE STAT 04/01/2025 2:19 AM CDT COMPREHENSIVE METABOLIC PANEL STAT 04/01/2025 2:19 AM CDT documented in this encounter Results * ABO / Rh Confirmation Testing (04/01/2025 2:27 AM CDT) ABO/Rh Confirmation O Positive MHB Blood 04/01/2025 2:27 AM CDT 04/01/2025 2:35 AM CDT us Gloria Denise MD LAB BLOOD ORDERABLES Fin al Result [facility] [place] [address] MHB * eGFR (04/01/2025 2:19 AM CDT) [facility] eGFR >90 >=60 mL/min/1. 73 m2 Comment: Interpretive Data Reference Interval Normal >/= 90 mL/min/1.73m2 Mildly decreased* 60 - 89 mL/min/1.73m2 Mildly to moderately decreased 45 - 59 mL/min/1.73m2 Moderately to severely decreased 30 - 44 mL/min/1.73m2 Severely decreased 15 - 29 mL/min/1.73m2 Kidney Failure < 15 mL/min/1.73m2 *Relative to young adult level Estimated glomerular filtration rate is determined by the 2020 CKD-EPI equation recommended by the National Kidney Foundation (A Unifying Approach to GFR Estimation: Recommendations of the NKF-ASK Task Force on Reassessing the Inclusion of Race in Diagnosing Kidney Disease, JASN 2020). The CKD-EPI equation should not be used for patients with unstable renal function and has not been validated in children and those over 70. Current interpretive data was last reviewed 2021. Blood 04/01/2025 2:19 AM CDT 04/01/2025 2:25 AM CDT us Gloria Denise MD LAB BLOOD ORDERABLES Fin al Result [facility] [place] [address] * (ABNORMAL) Differential, auto (04/01/2025 2:19 AM CDT) [facility] Neutrophil abs 8.75(H) 1.50 - 6.50 K/cumm Imm gran abs 0.03 0.00 - 0.10 K/cumm [facility] Lymphocyte abs 1.75 0.80 - 3.30 K/cumm [facility] Monocyte abs 0.57 0.20 - 0.80 K/cumm [facility] Eosinophil abs 0.22 0.00 - 0.50 K/cumm [facility] Basophil abs 0.05 0.00 - 0.10 K/cumm [facility] Neutrophil pct 77.0 % [facility] Comment: Interpretive Data Percent cell count reference ranges are not reported, since discordance with absolute values may lead to misinterpretation of CBC data. Current Interpretive Data was last revised on 2017. Imm gran pct 0.3 % [facility] Comment: Interpretive Data Percent cell count reference ranges are not reported, since discordance with absolute values may lead to misinterpretation of CBC data. Current Interpretive Data was last revised on 2017. Lymphocyte pct 15.4 % [facility] Comment: Interpretive Data Percent cell count reference ranges are not reported, since discordance with absolute values may lead to misinterpretation of CBC data. Current Interpretive Data was last revised on 2017. Monocyte pct 5.0 % [facility] Comment: Interpretive Data Percent cell count reference ranges are not reported, since discordance with absolute values may lead to misinterpretation of CBC data. Current Interpretive Data was last revised on 2017. Eosinophil pct 1.9 % [facility] Comment: Interpretive Data Percent cell count reference ranges are not reported, since discordance with absolute values may lead to misinterpretation of CBC data. Current Interpretive Data was last revised on 2017. Basophil pct 0.4 % [facility] Comment: Interpretive Data Percent cell count reference ranges are not reported, since discordance with absolute values may lead to misinterpretation of CBC data. Current Interpretive Data was last revised on 2017. Blood 04/01/2025 2:19 AM CDT 04/01/2025 2:25 AM CDT us Gloria Denise MD LAB BLOOD ORDERABLES Fin al Result [facility] [address] [facility] [place] [address] * Antibody screen (04/01/2025 2:19 AM CDT) Elizabeth, indirect, Gel Interpretation Negative ABSC Blood 04/01/2025 2:19 AM CDT 04/01/2025 2:25 AM CDT Narrative [facility] - 04/01/2025 3:02 AM CDT Has the patient had Daratumumab or Isatuximab in the past 6 months?->Unknown Gloria Denise MD LAB BLOOD BANK TEST ORDIndia GUZMAN Final Result Performing Organization Address [facility] Co de Phone Number [address] [address] * ABO/Rh (04/01/2025 2:19 AM CDT) Pathologist [facility] ABO/Rh O Positive Blood 04/01/2025 2:19 AM CDT 04/01/2025 2:25 AM CDT Narrative [facility] 04/01/2025 3:02 AM CDT Has the patient had Daratumumab or Isatuximab in the past 6 months?->Unknown Gloria Denise MD LAB BLOOD BANK TEST ORDE THOMAS Final Result Performing Organization Address [facility] Phone Number [address] [address] * (ABNORMAL) hCG, blood, quantitative (04/01/2025 2:19 AM CDT) Pathologist [facility] hCG, quant 21,383.0( H) 0.0 - 5.0 IUnits/L Comment: Interpretive Data Male: < 5 IU/L Non- premenopausal Female: <5 IU/L The Jose hCG Beta Quant assay procedure was used. Results from different manufacturers or methods may not be comparable. Serial testing should be performed using the same method. Interpretive Data was last revised on 2023 Blood 04/01/2025 2:19 AM CDT 04/01/2025 2:25 AM CDT Result [facility] Gloria Denise MD LAB BLOOD ORDERABLES Fin al Result Performing Organization Address [facility] Co de Phone Number [address] [address] * (ABNORMAL) Comprehensive metabolic panel (04/01/2025 2:19 AM CDT) Pathologist [facility] Sodium 137 135 - 145 mmol/L Potassium, pl 3.8 3.3 - 4.9 mmol/L [facility] Chloride 104 97 - 110 mmol/L [facility] CO2 22 22 - 32 mmol/L [facility] Anion gap 11 2 - 15 mmol/L [facility] BUN 15 6 - 25 mg/dL [facility] Creatinine 0.61 0.60 - 1.10 mg/dL [facility] Glucose 112 70 - 199 mg/dL [facility] Comment: Interpretive Data Fasting glucose >/= 126 mg/dl is diagnostic for diabetes. Fasting is defined as no caloric intake for at least 8 hours. Fasting glucose between 100 mg/dl to 125 mg/dl is diagnostic of prediabetes. In a patient with classic symptoms of hyperglycemia or hyperglycemic crisis, a random glucose >/= 200 mg/dl is diagnostic for diabetes. In the absence of unequivocal hyperglycemia, results should be confirmed by repeat testing. The classification and Diagnosis of Diabetes Diabetes Care 2021; 46: S19-S40. Current interpretive data was last revised 2022. Calcium 9.3 8.5 - 10.3 mg/dL [facility] Bilirubin, total 0.3 0.1 - 1.2 mg/dL [facility] Protein, pl 6.9 6.5 - 8.5 g/dL [facility] Albumin 4.4 3.5 - 5.0 g/dL [facility] Alk phos 54 40 - 130 Units/L [facility] ALT <5(L) 7 - 45 Units/L [facility] AST 16 10 - 45 Units/L [facility] Blood 04/01/2025 2:19 AM CDT 04/01/2025 2:25 AM CDT us Gloria Denise MD LAB BLOOD ORDERABLES Fin al Result [facility] [address] [facility] [place] [address] * (ABNORMAL) CBC with auto differential (04/01/2025 2:19 AM CDT) WBC 11.37(H) 3.80 - 9.90 K/cumm Hgb 11.1(L) 11.9 - 15.5 g/dL [facility] Hct 32.8(L) 35.6 - 45.5 % [facility] Plt 231 150 - 400 K/cumm [facility] MPV 10.3 9.1 - 12.3 fL [facility] RBC 3.65(L) 3.90 - 5.20 M/cumm [facility] MCV 89.9 81.3 - 96.4 fL [facility] MCH 30.4 27.1 - 33.3 pg [facility] MCHC 33.8 32.3 - 35.7 g/dL [facility] RDW CV 11.8 11.1 - 14.9 % [facility] RDW SD 38.5 35.7 - 48.1 fL [facility] NRBC abs 0.00 0.00 - 0.01 K/cumm [facility] Blood Venous blood specimen / Unknown 04/01/2025 2:19 AM CDT 04/01/2025 2:25 AM CDT us Gloria Denise MD LAB BLOOD ORDERABLES Fin al Result Performing Organization Address City/State/[facility] Co de Phone Number [facility] [address] [facility] [place] [address] documented in this encounter Visit Diagnoses Diagnosis Incomplete therapeutic - Primary Incomplete legally induced without mention of complication documented in this encounter Administered Medications Inactive Administered Medications - up to 3 most recent administrations Medication Order MAR Action Action Date Dose Rate Site ketorolac (TORADOL) 30 mg/mL injection 15 mg 15 mg, intravenous, Once, On Sun04/01/25 at 0304, For 1 dose, For Adult IV push, administer over 15 seconds, Indications: PainIndications:Pain Given 04/01/2025 3:10 AM CDT 15 mg ondansetron (ZOFRAN) injection 4 mg 4 mg, intravenous, Administer over 2 Minutes, Once, On Sun04/01/25 at 0304, For 1 dose, Indications: Nausea, VomitingIndications:Nausea, Vomiting Given 04/01/2025 3:10 AM CDT 4 mg sodium chloride 0.9% bolus 1,000 mL 1,000 mL, intravenous, at 999 mL/hr, Administer over 1 Hours, Once, On Sun04/01/25 at 0304, For 1 dose New Bag 04/01/2025 3:10 AM CDT 1,000 mL 999 mL/hr documented in this encounter Active and Recently Administered Medications Times are shown in CDT. Scheduled Medication Order 03/30/2025 03/31/2025 04/01/2025 ketorolac (TORADOL) 30 mg/mL injection 15 mg (COMPLETED) 15 mg, intravenous, Once, On Sun04/01/25 at 0304, For 1 dose, For Adult IV push, administer over 15 seconds, Indications: Pain 0310 (Given - Provid er: Pily Martinez RN) ondansetron (ZOFRAN) injection 4 mg (COMPLETED) 4 mg, intravenous, Administer over 2 Minutes, Once, On Sun04/01/25 at 0304, For 1 dose, Indications: Nausea, Vomiting 0310 (Given - Provid er: Pily Martinez RN) sodium chloride 0.9% bolus 1,000 mL (COMPLETED) 1,000 mL, intravenous, at 999 mL/hr, Administer over 1 Hours, Once, On Sun04/01/25 at 0304, For 1 dose 0310 (New Bag - Prov ider: Pily Martinez RN)0511 (Stopped - Provider: Pily Martinez RN) documented in this encounter Orders IV Count Last Ordered Date First Orde red Date SALINE LOCK IV 1 04/01/2025 documented in this encounter Care Teams Label Stitcher Relationship Specialty Start Date End Date No, Physician PCP - General 04/01/25 documented as of this encounter
--- OUTSIDE RECORDS SUMMARY | 2025-04-01 02:22 | XMS_ITS | Encounter Summary ---
Author Organization [facility] Healthcare Address [address] [place] [address] Care Team Providers Care Canvas Shop Laborer Name Role Phone No, Physician Primary Care Provider [phone] Reason for Visit * Reason Comments Vaginal Bleeding Abdominal Pain Encounter Details Date Type Department Care Team (Late st Contact Info) Description 04/01/2025 2:22 AM CDT - 04/01/2025 5:53 AM CDT Emergency [address] [address] Gloria Denise MD [address] [place] [id number] Incomplete therapeutic (Primary Dx) Discharge Disposition: Discharge [...] seen or establish care with a new Snagger who can discuss family planning in the [...] with voice recognition software. Occasional wrong-word or '[id number]' substitutions may have occurred due to the inherent limitations of voice recognition software. Read the chart carefully and recognize, using context, where substitutions have occurred. H&P: Krystle Landers is a 19 y.o. female that has otherwise healthy and takes no medications on a regular basis presents for painful pelvic cramping and vaginal bleeding. at 8wga by LMP and US last week at the [facility], and 9 days after 1st dose of [...] called the after hours/emergency line at the [facility] who told her to go to the emergency department. She just moved back to this area. She does not have a primary care doctor or svp digital sales food & cooking with whom she is established. Past medical/past [...] Normal mood. Pelvic exam with female nurse supervisor coffee: Two large clots removed from the vaginal [...] by myself in the absence of a career development associate) Procedures ED course/MDM: External chart review: (details [...] 04/01 441 Comment: I spoke to on-call svp digital sales food & cooking, Dr. Rothman, she said okay to offer [...] feeling. By: Gloria Denise MD Time: 04/01 0593 Value: ABO/Rh Confirmation: O Positive Comment: No [...] I was talking to her about the svp digital sales food & cooking on-call recommendations or offering her 600 mg [...] been completed with a voice recognition program. Fermenter Champagne errors occur. Please contact me for any [...] Smyth - 04/01/2025 5:53 AM CDT Community Owner Manager reached to patient via phone to assess current PCP needs. CRC left her contact information requesting a call back. NATHANIEL Mccullough Community Owner Manager [phone] documented in this encounter Plan of Treatment [...] LAB BLOOD ORDERABLES Fin al Result [facility] [place] [address] MHB * eGFR (04/01/2025 2:19 AM CDT) [facility] eGFR >90 >=60 mL/min/1. 73 m2 Comment: [...] LAB BLOOD ORDERABLES Fin al Result [facility] Department [place] [address] * (ABNORMAL) Differential, auto (04/01/2025 2:19 AM CDT) [facility] Neutrophil abs 8.75(H) 1.50 - 6.50 K/cumm Imm gran abs 0.03 0.00 - 0.10 K/cumm [facility] Lymphocyte abs 1.75 0.80 - 3.30 K/cumm [facility] Monocyte abs 0.57 0.20 - 0.80 K/cumm [facility] Eosinophil abs 0.22 0.00 - 0.50 K/cumm [facility] Basophil abs 0.05 0.00 - 0.10 K/cumm [facility] Neutrophil pct 77.0 % [facility] Comment: Interpretive Data Percent cell count reference ranges are not reported, since discordance with absolute values may lead to misinterpretation of CBC data. Current Interpretive Data was last revised on 2017. Imm gran pct 0.3 % [facility] Comment: Interpretive Data Percent cell count reference ranges are not reported, since discordance with absolute values may lead to misinterpretation of CBC data. Current Interpretive Data was last revised on 2017. Lymphocyte pct 15.4 % [facility] Comment: Interpretive Data Percent cell count reference ranges are not reported, since discordance with absolute values may lead to misinterpretation of CBC data. Current Interpretive Data was last revised on 2017. Monocyte pct 5.0 % [facility] Comment: Interpretive Data Percent cell count reference ranges are not reported, since discordance with absolute values may lead to misinterpretation of CBC data. Current Interpretive Data was last revised on 2017. Eosinophil pct 1.9 % [facility] Comment: Interpretive Data Percent cell count reference ranges are not reported, since discordance with absolute values may lead to misinterpretation of CBC data. Current Interpretive Data was last revised on 2017. Basophil pct 0.4 % [facility] Comment: Interpretive Data Percent cell count reference ranges are not reported, since discordance with absolute values may lead to misinterpretation of CBC data. Current Interpretive Data was last revised on 2017. Blood 04/01/2025 2:19 AM CDT 04/01/2025 2:25 AM CDT us Gloria Denise MD LAB BLOOD ORDERABLES Fin al Result [facility] [address] [facility] Department [place] [address] * Antibody screen (04/01/2025 2:19 AM CDT) Elizabeth, indirect, Gel Interpretation Negative ABSC Blood 04/01/2025 2:19 AM CDT 04/01/2025 2:25 AM CDT Narrative [facility] - 04/01/2025 3:02 AM CDT Has the patient had Daratumumab or Isatuximab in the past 6 months?->Unknown Gloria Denise MD LAB BLOOD BANK TEST ORDIndia GUZMAN Final Result Performing Organization Address [facility] Co de Phone Number [address] [address] * ABO/Rh (04/01/2025 2:19 AM CDT) Pathologist [facility] ABO/Rh O Positive Blood 04/01/2025 2:19 AM CDT 04/01/2025 2:25 AM CDT Narrative [facility] 04/01/2025 3:02 AM CDT Has the patient had Daratumumab or Isatuximab in the past 6 months?->Unknown Gloria Denise MD LAB BLOOD BANK TEST ORDE THOMAS Final Result Performing Organization Address [facility] Phone Number [address] [address] * (ABNORMAL) hCG, blood, quantitative (04/01/2025 2:19 AM CDT) Pathologist [facility] hCG, quant 21,383.0( H) 0.0 [...] AM CDT 04/01/2025 2:25 AM CDT Result [facility] Gloria Denise MD LAB BLOOD ORDERABLES Fin al Result Performing Organization Address [facility] Co de Phone Number [address] [address] * (ABNORMAL) Comprehensive metabolic panel (04/01/2025 2:19 AM CDT) Pathologist [facility] Sodium 137 135 - 145 mmol/L Potassium, pl 3.8 3.3 - 4.9 mmol/L [facility] Chloride 104 97 - 110 mmol/L [facility] CO2 22 22 - 32 mmol/L [facility] Anion gap 11 2 - 15 mmol/L [facility] BUN 15 6 - 25 mg/dL [facility] Creatinine 0.61 0.60 - 1.10 mg/dL [facility] Glucose 112 70 - 199 mg/dL [facility] Comment: Interpretive Data Fasting glucose >/= 126 [...] 2022. Calcium 9.3 8.5 - 10.3 mg/dL [facility] Bilirubin, total 0.3 0.1 - 1.2 mg/dL [facility] Protein, pl 6.9 6.5 - 8.5 g/dL [facility] Albumin 4.4 3.5 - 5.0 g/dL [facility] Alk phos 54 40 - 130 Units/L [facility] ALT <5(L) 7 - 45 Units/L [facility] AST 16 10 - 45 Units/L [facility] Blood 04/01/2025 2:19 AM CDT 04/01/2025 2:25 AM CDT us Gloria Denise MD LAB BLOOD ORDERABLES Fin al Result [facility] [address] [facility] Department [place] [address] * (ABNORMAL) CBC with auto differential (04/01/2025 2:19 AM CDT) WBC 11.37(H) 3.80 - 9.90 K/cumm Hgb 11.1(L) 11.9 - 15.5 g/dL [facility] Hct 32.8(L) 35.6 - 45.5 % [facility] Plt 231 150 - 400 K/cumm [facility] MPV 10.3 9.1 - 12.3 fL [facility] RBC 3.65(L) 3.90 - 5.20 M/cumm [facility] MCV 89.9 81.3 - 96.4 fL [facility] MCH 30.4 27.1 - 33.3 pg [facility] MCHC 33.8 32.3 - 35.7 g/dL [facility] RDW CV 11.8 11.1 - 14.9 % [facility] RDW SD 38.5 35.7 - 48.1 fL [facility] NRBC abs 0.00 0.00 - 0.01 K/cumm [facility] Blood Venous blood specimen / Unknown 04/01/2025 2:19 AM CDT 04/01/2025 2:25 AM CDT us Gloria Denise MD LAB BLOOD ORDERABLES Fin al Result Performing Organization Address City/State/[facility] Co de Phone Number [facility] [address] [facility] Department [place] [address] documented in this encounter Visit Diagnoses Diagnosis [...] 04/01/2025 documented in this encounter Care Teams Canvas Shop Laborer Relationship Specialty Start Date End Date No, Physician PCP - General 04/01/25 documented as of this encounter
--- NOTE | ~2025-04-02 | CT_ITS ---
EXAMINATION: CT abdomen pelvis w con DATE: 04/02/2025 23:05 INDICATION: Abdominal pain. Back pain. Recent miscarriage. TECHNIQUE: Computed tomography (CT) of the abdomen and pelvis was performed with 100 mL Omnipaque 350 intravenous contrast. Automated exposure control and iterative reconstruction technique were employed. The dose-length product was 322.60 mGy-cm. COMPARISON: None. FINDINGS: The visualized portions of the lung bases are clear without pneumonia or pleural effusion. The heart size is normal. No pericardial effusion. The liver, gallbladder, spleen, pancreas, adrenal glands, and right kidney are normal. There are cysts in the left kidney measuring up to 8 mm. The endometrial complex measures 3.7 cm in thickness. There are no dilated loops of bowel. The appendix is normal. There are no pathologically enlarged lymph nodes. There is no free intraperitoneal fluid. The bones are unremarkable. IMPRESSION: 1. Thickened endometrial complex, consistent with retained products of conception. Reviewed, dictated and finalized at location E. IMPRESSION: 1. Thickened endometrial complex, consistent with retained products of concepti on.
--- NOTE | ~2025-04-02 | US_ITS ---
EXAMINATION: US OB <=14 wk fetus w TV DATE: 04/03/2025 03:54 INDICATION: Bleeding after taking pill. Positive test. TECHNIQUE: Real-time transabdominal and transvaginal pelvic ultrasound was performed. COMPARISON: None. FINDINGS: TRANSABDOMINAL ULTRASOUND: The uterus measures 10.0 x 5.5 x 7.3 cm. TRANSVAGINAL ULTRASOUND: The endometrial complex measures 2.9 cm in thickness and demonstrates internal vascular flow. There is no visible intrauterine gestational sac. The right ovary measures 2.5 x 2.3 x 2.2 cm. The left ovary measures 3.7 x 1.9 x 2.5 cm. There is trace free fluid in the pelvis. IMPRESSION: 1. No visible intrauterine gestational sac. The differential diagnosis includes early , ectopic , and with retained products of conception. Reviewed, dictated and finalized at location E. IMPRESSION: 1. No visible intrauterine gestational sac. The differential diagnosis include s early , ectopic , and with retained products of co nception.
--- OUTSIDE RECORDS SUMMARY | 2025-04-02 20:27 | XMS_ITS | Clinical Summary ---
Author Organization [facility] Address [address] [place] [id number] Care Team Providers Care Technician Assistant Name Role Phone No, Physician Primary Care Provider [phone] Allergies No known active allergies Medications ibuprofen (ADVIL,MOTRIN) 600 mg tablet Take 1 tablet (600 mg total) by mouth every 6 (six) hours as needed for pain 30 tablet 04/01/2025 Active Encounters Date Type Department Care Team Description 04/01/2025 2:22 AM CDT - 04/01/2025 5:53 AM CDT Emergency [address] [address] Gloria Denise MD Incomplete therapeutic (Primary Dx) Discharge Disposition: Discharge to home or self care from Last 3 Months Social History Tobacco Use Types Packs/Day Years [...] - - Body Mass Index - - Plan of Treatment Health Maintenance Due Date Last Done Comments Depression Screening 2004 Hepatitis C Screening 2004 HPV Vaccines (1 - 3-dose series) 2019 Meningococcal B Vaccine (1 of 2 - Standard) 2020 Regular Well Visit/Exam 18-64 2022 Influenza Vaccine (#1) 2025 03/21/2016 DTaP/Tdap/Td Vaccine (5 - Td or Tdap) 03/21/2026 03/21/2016, 02/17/2009, 01/10/2007, Additional history exists Hepatitis B Screening Completed 03/06/2005 , 03/06/2005, 2004, Additional history exists Pneumococcal vaccine <65 Completed 005, 03/06/2005, 2004, Additional history exists Meningococcal Vaccine Aged Out 03/21/2016 No yoan nadira eligible based on patient's age to complete this topic Varicella Vaccines Completed 03/21/2016, 01/10/2007 Procedures Procedure Name Priority Date/Time Associated Diagnosis Comments B ABO / RH CONFIRMATION TESTING STAT 04/01/2025 2:27 AM CDT EGFR STAT 04/01/2025 2:19 AM CDT DIFFERENTIAL AUTO STAT 04/01/2025 2:1 9 AM CDT ANTIBODY SCREEN STAT 04/01/2025 2:19 AM CDT ABO/RH STAT 04/01/2025 2:19 AM CDT HCG, BLOOD, QUANTITATIVE STAT 04/01/2025 2:19 AM CDT TYPE AND SCREEN STAT 04/01/2025 2:19 AM CDT COMPREHENSIVE METABOLIC PANEL STAT 04/01/2025 2:19 AM CDT CBC WITH AUTO DIFFERENTIAL STAT 04/01/2025 2:19 AM CDT from Last 3 Months Results * ABO / Rh Confirmation Testing (04/01/2025 2:27 AM CDT) ABO/Rh Confirmation O Positive [facility] Blood 04/01/2025 2:27 AM CDT 04/01/2025 2:35 AM CDT Gloria Denise MD LAB BLOOD ORDERABLES Fin al Result Performing Organization Address [facility] Co de Phone Number [facility] [address] [place] [address] MHB * eGFR (04/01/2025 2:19 AM CDT) eGFR >90 >=60 mL/min/1. 73 m2 Comment: [...] 2:19 AM CDT 04/01/2025 2:25 AM CDT Gloria Denise MD LAB BLOOD ORDERABLES Fin al Result Performing Organization Address City/[facility]/ZIP Co de Phone Number [address] [place] [address] * (ABNORMAL) Differential, auto (04/01/2025 2:19 AM CDT) Neutrophil abs 8.75(H) 1.50 - 6.50 K/cumm Imm gran abs 0.03 0.00 - 0.10 K/cumm [facility] Lymphocyte abs 1.75 0.80 - 3.30 K/cumm [facility] Monocyte abs 0.57 0.20 - 0.80 K/cumm [facility] Eosinophil abs 0.22 0.00 - 0.50 K/cumm [facility] Basophil abs 0.05 0.00 - 0.10 K/cumm [facility] Neutrophil pct 77.0 % [facility] Comment: Interpretive Data Percent cell count reference ranges are not reported, since discordance with absolute values may lead to misinterpretation of CBC data. Current Interpretive Data was last revised on 2017. Imm gran pct 0.3 % [facility] Comment: Interpretive Data Percent cell count reference ranges are not reported, since discordance with absolute values may lead to misinterpretation of CBC data. Current Interpretive Data was last revised on 2017. Lymphocyte pct 15.4 % [facility] Comment: Interpretive Data Percent cell count reference ranges are not reported, since discordance with absolute values may lead to misinterpretation of CBC data. Current Interpretive Data was last revised on 2017. Monocyte pct 5.0 % [facility] Comment: Interpretive Data Percent cell count reference ranges are not reported, since discordance with absolute values may lead to misinterpretation of CBC data. Current Interpretive Data was last revised on 2017. Eosinophil pct 1.9 % [facility] Comment: Interpretive Data Percent cell count reference ranges are not reported, since discordance with absolute values may lead to misinterpretation of CBC data. Current Interpretive Data was last revised on 2017. Basophil pct 0.4 % [facility] Comment: Interpretive Data Percent cell count reference ranges are not reported, since discordance with absolute values may lead to misinterpretation of CBC data. Current Interpretive Data was last revised on 2017. Blood 04/01/2025 2:19 AM CDT 04/01/2025 2:25 AM CDT Gloria Denise MD LAB BLOOD ORDERABLES Fin al Result Performing Organization Address City/State/[facility] de Phone Number [address] [address] * (ABNORMAL) CBC with auto differential (04/01/2025 2:19 AM CDT) Pathologist [facility] WBC 11.37(H) 3.80 - 9.90 K/cumm Hgb 11.1(L) 11.9 - 15.5 g/dL [facility] Hct 32.8(L) 35.6 - 45.5 % [facility] Plt 231 150 - 400 K/cumm [facility] MPV 10.3 9.1 - 12.3 fL [facility] RBC 3.65(L) 3.90 - 5.20 M/cumm [facility] MCV 89.9 81.3 - 96.4 fL [facility] MCH 30.4 27.1 - 33.3 pg [facility] MCHC 33.8 32.3 - 35.7 g/dL [facility] RDW CV 11.8 11.1 - 14.9 % [facility] RDW SD 38.5 35.7 - 48.1 fL [facility] NRBC abs 0.00 0.00 - 0.01 K/cumm [facility] Blood Venous blood specimen / Unknown 04/01/2025 2:19 AM CDT 04/01/2025 2:25 AM CDT Gloria Denise MD LAB BLOOD ORDERABLES Fin al Result Performing Organization Address [facility] Co de Phone Number [address] [address] * ABO/Rh (04/01/2025 2:19 AM CDT) [facility] ABO/Rh O Positive Blood 04/01/2025 2:19 AM CDT 04/01/2025 2:25 AM CDT Narrative [facility] - 04/01/2025 3:02 AM CDT Has the patient had Daratumumab or Isatuximab in the past 6 months?->Unknown Gloria Denise MD LAB BLOOD BANK TEST ORDE THOMAS Final Result Performing Organization Address City/[facility] Co de Phone Number [address] [address] * Antibody screen (04/01/2025 2:19 AM CDT) Pathologist [facility] Elizabeth, indirect, Gel Interpretation Negative ABSC Blood 04/01/2025 2:19 AM CDT 04/01/2025 2:25 AM CDT Narrative [facility] - 04/01/2025 3:02 AM CDT Has the patient had Daratumumab or Isatuximab in the past 6 months?->Unknown Gloria Denise MD LAB BLOOD BANK TEST ORDE RABANDRES Final Result Performing Organization Address [facility] Phone Number [address] [address] * (ABNORMAL) hCG, blood, quantitative (04/01/2025 2:19 AM CDT) [facility] hCG, quant 21,383.0( H) 0.0 - 5.0 [...] 2:19 AM CDT 04/01/2025 2:25 AM CDT Gloria Denise MD LAB BLOOD ORDERABLES Fin al Result Performing Organization Address City/[facility] Co de Phone Number [address] [address] * (ABNORMAL) Comprehensive metabolic panel (04/01/2025 2:19 AM CDT) [facility] Sodium 137 135 - 145 mmol/L Potassium, pl 3.8 3.3 - 4.9 mmol/L [facility] Chloride 104 97 - 110 mmol/L [facility] CO2 22 22 - 32 mmol/L [facility] Anion gap 11 2 - 15 mmol/L [facility] BUN 15 6 - 25 mg/dL [facility] Creatinine 0.61 0.60 - 1.10 mg/dL [facility] Glucose 112 70 - 199 mg/dL [facility] Comment: Interpretive Data Fasting glucose >/= 126 [...] 2022. Calcium 9.3 8.5 - 10.3 mg/dL [facility] Bilirubin, total 0.3 0.1 - 1.2 mg/dL [facility] Protein, pl 6.9 6.5 - 8.5 g/dL [facility] Albumin 4.4 3.5 - 5.0 g/dL [facility] Alk phos 54 40 - 130 Units/L [facility] ALT <5(L) 7 - 45 Units/L [facility] AST 16 10 - 45 Units/L [facility] Blood 04/01/2025 2:19 AM CDT 04/01/2025 2:25 AM CDT us Gloria Denise MD LAB BLOOD ORDERABLES Fin al Result [facility] [address] [facility] Department [place] [address] from Last 3 Months Care Teams Technician Assistant Relationship Specialty Start Date End Date No, Physician PCP - General 04/01/25
[2025-04-02 20:39] VITALS: BP 110/72; PULSE 104; RESP 16; TEMP 36.9; O2SAT 99
[2025-04-02 21:55] VITALS: BP 115/75; PULSE 89; RESP 22; O2SAT 100
[2025-04-02 22:00] VITALS: BP 115/75; PULSE 92; RESP 22; O2SAT 100
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
[2025-04-02 22:21] LABS: BEDSIDEPREGUCG Positive (Negative)
[2025-04-02] MEDS: ONDANSETRON INJ 4 MG/2 ML VIAL IV PUSH (22:21)
[2025-04-02] MEDS: KETOROLAC 15 MG/ML VIAL (*BKC) IV PUSH (22:21)
[2025-04-02 22:25] LABS: Hematocrit 30.7 % (37.0-47.0); Hemoglobin 10.1 g/dL (12.0-15.0); Immature Granulocyte Percent A 0.4 % (0-0.5); Lymphocytes Absolute Auto 1.63 K/mm3 (0.9-3.2); Mean Corpuscular HGB Conc 32.9 g/dl (32-36); Mean Corpuscular Hemoglobin 30.2 pg (26-34); Mean Corpuscular Volume 91.9 fl (80-100); Nucleated Red Blood Cells Absolute Auto 0.000 K/mm3 (0.0-0.012); Nucleated Red Blood Cells Perc 0.0 % (0.0-0.2); Platelet Count Result 232 k/mm3 (150-375); Red Blood Count 3.34 M/mm3 (4.2-5.4); White Blood Count 12.0 K/mm3 (4.5-10.0)
[2025-04-02 22:26] VITALS: PULSE 81; RESP 16; O2SAT 100
--- OUTSIDE RECORDS SUMMARY | 2025-04-02 22:26 | XMS_ITS | Clinical Summary ---
Author Organization [facility] Address [address] [place] [id number] Care Team Providers Care Ret[facility] Manager Name Role Phone No, Physician Primary Care Provider [phone] Allergies No known active allergies Medications ibuprofen (ADVIL,MOTRIN) 600 mg tablet Take 1 tablet (600 mg total) by mouth every 6 (six) hours as needed for pain 30 tablet 04/01/2025 Active Encounters Date Type Department Care Team Description 04/01/2025 2:22 AM CDT - 04/01/2025 5:53 AM CDT Emergency [address] [address] Gloria Denise MD Incomplete therapeutic (Primary Dx) [...] 2:27 AM CDT) ABO/Rh Confirmation O Positive [facility] Blood 04/01/2025 2:27 AM CDT 04/01/2025 2:35 AM CDT Gloria Denise MD LAB BLOOD ORDERABLES Fin al Result Performing Organization Address [facility] Co de Phone Number PAUL [address] [place] [address] MHB * eGFR (04/01/2025 2:19 AM CDT) [...] ORDERABLES Fin al Result Performing Organization Address City/[facility]/ZIP Co de Phone Number [id number] [place] [employer] [place] [address] * (ABNORMAL) Differential, auto (04/01/2025 2:19 AM CDT) Neutrophil abs 8.75(H) 1.50 - 6.50 K/cumm Imm gran abs 0.03 0.00 - 0.10 K/cumm [facility] Lymphocyte abs 1.75 0.80 - 3.30 K/cumm [facility] Monocyte abs 0.57 0.20 - 0.80 K/cumm [facility] Eosinophil abs 0.22 0.00 - 0.50 K/cumm [facility] Basophil abs 0.05 0.00 - 0.10 K/cumm [facility] Neutrophil pct 77.0 % [facility] Comment: Interpretive Data Percent cell count reference ranges are not reported, since discordance with absolute values may lead to misinterpretation of CBC data. Current Interpretive Data was last revised on 2017. Imm gran pct 0.3 % [facility] Comment: Interpretive Data Percent cell count reference ranges are not reported, since discordance with absolute values may lead to misinterpretation of CBC data. Current Interpretive Data was last revised on 2017. Lymphocyte pct 15.4 % [facility] Comment: Interpretive Data Percent cell count reference ranges are not reported, since discordance with absolute values may lead to misinterpretation of CBC data. Current Interpretive Data was last revised on 2017. Monocyte pct 5.0 % [facility] Comment: Interpretive Data Percent cell count reference ranges are not reported, since discordance with absolute values may lead to misinterpretation of CBC data. Current Interpretive Data was last revised on 2017. Eosinophil pct 1.9 % [facility] Comment: Interpretive Data Percent cell count reference ranges are not reported, since discordance with absolute values may lead to misinterpretation of CBC data. Current Interpretive Data was last revised on 2017. Basophil pct 0.4 % [facility] Comment: Interpretive Data Percent cell count reference ranges are not reported, since discordance with absolute values may lead to misinterpretation of CBC data. Current Interpretive Data was last revised on 2017. Blood 04/01/2025 2:19 AM CDT 04/01/2025 2:25 AM CDT Gloria Denise MD LAB BLOOD ORDERABLES Fin al Result Performing Organization Address City/State/[facility] de Phone Number [address] [address] * (ABNORMAL) CBC with auto differential (04/01/2025 2:19 AM CDT) Pathologist [facility] WBC 11.37(H) 3.80 - 9.90 K/cumm Hgb 11.1(L) 11.9 - 15.5 g/dL [facility] Hct 32.8(L) 35.6 - 45.5 % [facility] Plt 231 150 - 400 K/cumm [facility] MPV 10.3 9.1 - 12.3 fL [facility] RBC 3.65(L) 3.90 - 5.20 M/cumm [facility] MCV 89.9 81.3 - 96.4 fL [facility] MCH 30.4 27.1 - 33.3 pg [facility] MCHC 33.8 32.3 - 35.7 g/dL [facility] RDW CV 11.8 11.1 - 14.9 % [facility] RDW SD 38.5 35.7 - 48.1 fL [facility] NRBC abs 0.00 0.00 - 0.01 K/cumm [facility] Blood Venous blood specimen / Unknown 04/01/2025 2:19 AM CDT 04/01/2025 2:25 AM CDT Gloria Denise MD LAB BLOOD ORDERABLES Fin al Result Performing Organization Address [facility] Co de Phone Number [address] [address] * ABO/Rh (04/01/2025 2:19 AM CDT) [facility] ABO/Rh O Positive Blood 04/01/2025 2:19 AM CDT 04/01/2025 2:25 AM CDT Narrative [facility] - 04/01/2025 3:02 AM CDT Has the patient had Daratumumab or Isatuximab in the past 6 months?->Unknown Gloria Denise MD LAB BLOOD BANK TEST ORDE THOMAS Final Result Performing Organization Address City/[facility] Co de Phone Number [address] [address] * Antibody screen (04/01/2025 2:19 AM CDT) Pathologist [facility] Elizabeth, indirect, Gel Interpretation Negative ABSC Blood 04/01/2025 2:19 AM CDT 04/01/2025 2:25 AM CDT Narrative [facility] - 04/01/2025 3:02 AM CDT Has the patient had Daratumumab or Isatuximab in the past 6 months?->Unknown Gloria Densie MD LAB BLOOD BANK TEST ORDE RABANDRES Final Result Performing Organization Address [facility] [place] Phone Number [address] [address] * (ABNORMAL) hCG, blood, quantitative (04/01/2025 2:19 AM CDT) [facility] hCG, quant 21,383.0( H) 0.0 - [...] ORDERABLES Fin al Result Performing Organization Address City/[facility] Co de Phone Number [address] [address] * (ABNORMAL) Comprehensive metabolic panel (04/01/2025 2:19 AM CDT) [facility] Sodium 137 135 - 145 mmol/L Potassium, pl 3.8 3.3 - 4.9 mmol/L [facility] Chloride 104 97 - 110 mmol/L [facility] CO2 22 22 - 32 mmol/L [facility] Anion gap 11 2 - 15 mmol/L [facility] BUN 15 6 - 25 mg/dL [facility] Creatinine 0.61 0.60 - 1.10 mg/dL [facility] Glucose 112 70 - 199 mg/dL [facility] Comment: Interpretive Data Fasting glucose [...] 9.3 8.5 - 10.3 mg/dL [facility] Bilirubin, total 0.3 0.1 - 1.2 mg/dL [facility] Protein, pl 6.9 6.5 - 8.5 g/dL [facility] Albumin 4.4 3.5 - 5.0 g/dL [facility] Alk phos 54 40 - 130 Units/L [facility] ALT <5(L) 7 - 45 Units/L [facility] AST 16 10 - 45 Units/L [facility] Blood 04/01/2025 2:19 AM CDT 04/01/2025 2:25 AM CDT us Gloria Denise MD LAB BLOOD ORDERABLES Fin al Result [facility] [address] [facility] Department [place] [address] from Last 3 Months Care Teams Retirement Village Manager Relationship Specialty Start Date End Date No, Physician PCP - General 04/01/25
[2025-04-02 22:32] VITALS: PULSE 95; RESP 14; O2SAT 100
[2025-04-02 22:37] LABS: Alanine Aminotransferase 12 U/L (6-35); Albumin Level 4.2 g/dL (3.5-5.1); Alkaline Phosphatase 63 U/L (38-126); Anion Gap 11 mmol/L (4-12); Aspartate Amino Transferase 24 U/L (14-36); Bilirubin,Total 1.0 mg/dL (0.2-1.3); Blood Urea Nitrogen 17 mg/dL (7-17); Calcium 8.6 mg/dL (8.4-10.2); Carbon Dioxide 20 mmol/L (22-30); Chloride 107 mmol/L (98-107); Estimated CRCL calculation 83 ml/min; Estimated Glomerular Filt Rate > 60; Glucose 85 mg/dL (65-110); Potassium 3.6 mmol/L (3.4-5.0); Sodium 138 mmol/L (137-145); Total Protein 7.3 g/dL (6.3-8.2)
[2025-04-02 22:39] LABS: Add Urine Microscopic? YES; Appearance Urine Clear (Clear); Glucose Urine UA Negative (Negative); Leukocyte Esterase Ur Negative LEU/UL (Negative); Need Manual Microscopic Reviewed; Nitrate Urine Negative (Negative); Specific Grav Ur 1.044 (1.001-1.035)
[2025-04-02 22:41] LABS: INR 1.1; Prothrombin Time 13.9 Seconds (11.1-14.7)
[2025-04-02 22:42] LABS: Partial Thromboplastin Time 30.3 Seconds (22.3-36.8)
[2025-04-02 22:46] VITALS: PULSE 90; RESP 20; O2SAT 100
[2025-04-02 22:52] LABS: Beta HCG Quantitative 7732.00 mIU/ML
[2025-04-03] VITALS (15 sets, daily range): BP systolic 90–110; BP diastolic 54–77; PULSE 74–94; RESP 14–21; TEMP 36.3–37; O2SAT 98–100
[2025-04-03] MEDS: MORPHINE SULFATE (*CRX) 4 MG/ML INJ IV PUSH ×4 (01:56→10:10)
[2025-04-03 02:35] LABS: Hematocrit 26.8 % (37.0-47.0); Hemoglobin 8.8 g/dL (12.0-15.0); Immature Granulocyte Percent A 0.4 % (0-0.5); Lymphocytes Absolute Auto 1.77 K/mm3 (0.9-3.2); Mean Corpuscular HGB Conc 32.8 g/dl (32-36); Mean Corpuscular Hemoglobin 30.0 pg (26-34); Mean Corpuscular Volume 91.5 fl (80-100); Nucleated Red Blood Cells Absolute Auto 0.000 K/mm3 (0.0-0.012); Nucleated Red Blood Cells Perc 0.0 % (0.0-0.2); Platelet Count Result 201 k/mm3 (150-375); Red Blood Count 2.93 M/mm3 (4.2-5.4); White Blood Count 10.3 K/mm3 (4.5-10.0)
[2025-04-03] MEDS: SODIUM CHLORIDE 0.9% IV 1,000 ML 125 ML IV CONT (03:44)
--- NOTE | 2025-04-03 04:59 | OBADM ---
This patient, Krystle Landers, admitted to the OB room OB Post 116 for observation. Patient/family oriented to hospital policies and general routines including ID bracelet, bed and alarms, visiting hours, pain management, procedures, bathroom and other care routines, personal items, smoking policy, room service/diet, and visiting hours. Patient/Family are encouraged to report perceived risks to care and to ask questions if they do not understand what they are told or what they should do.
--- NOTE | 2025-04-03 08:04 | PC.NURSE ---
0714--Reported pt status to Dr. Mustafa. No new bleeding observed; small amount of older, brown blood noted on pad. He will call surgery to have D&C added to schedule.
[2025-04-03] MEDS: LACTATED RINGERS 1,000 ML 125 ML IV CONT (12:24)
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
--- NOTE | 2025-04-03 14:41 | WPDHPUPDATE1 ---
History and Physical Update Update Date/Time: 04/03/25 14:41 History and Physical has been reviewed, including an updated exam of the patient. There are NO changes in the patient's condition. Risks, benefits, and alternatives have been discussed and questions answered. Patient agrees to proceed with procedure.
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
--- NOTE | 2025-04-03 15:16 | S_PTH ---
PATIENT: Krystle Landers LOC: [facility] U#:[id number] AGE/SX: 19/F ROOM: 116 RE04/03/[address]: Sher Mustafa MD : 2005 BED: 00 DIS: 04/03/2025 SPEC #: [id number] RECD: 04/06/25 08:06 STATUS: CHEMA REQ #: [id number] ALESSANDRO: 04/03/25 15:[address]: Sher Mustafa DEPT: [facility] Surgical RECD BY: Melvina Campbell ENTERED: 04/06/25 08:06 SP TYPE: Surgical OTHR DR: DIAMOND GRADER PHYSICIAN MD Valente Sesay MD Frederick W. Wagner, MD Tissues: A - Products of Conception Procedures: Hematoxylin and Eosin Stain Gross and Microscopic Level 4
[2025-04-03] MEDS: KETOROLAC 30 MG/ML VIAL (*BKC) IV PUSH (15:23)
--- NOTE | 2025-04-03 15:25 | P.OP_ITS ---
Procedure Note - Detailed Date of Procedure 04/03/25 Pre-op Diagnosis Incomplete miscarriage/ Post-op Diagnosis Same Procedure Performed Suction D&C Surgeon Sher Mustafa MD Anesthesia MAC Indications Incomplete miscarriage Findings normal-appearing vulva vagina and cervix to. Uterus was full of well- organized, tenacious clots and products conception Description of Procedure the patient was taken the operating room. She was prepped and draped in dorsal lithotomy position after induction of mac anesthesia. A speculum was placed in the vagina. Cervix grasped with tenaculum. The cervix was dilated to about 1 cm Using Hernandez dilators. A 8. German curved curette was used to perform suction D&C. The curette was introduced and vacuum was applied. The curette was removed over all surfaces of the intrauterine cavity multiple times. Many repetitions curettage required tube removed tenacious clots and debris and products conception This was done until all the surfaces were clear and had the familiar grainy texture they can be felt through the instrument. A sharp curette was then used to curettage all the surfaces. The suction cup was then reapplied 1 more time to remove any debris. The instruments were removed. The speculum and tenaculum were removed. The patient tolerated the procedure well. She was taken recovery room stable condition. Estimated Blood Loss 50 Drains No Packing No Pathology Yes Complications No immediate complications Condition Stable Disposition PACU
[2025-04-03] MEDS: LACTATED RINGERS 1,000 ML 30 ML IV CONT (15:26)
[2025-04-03] MEDS: ACETAMINOPHEN 500 MG TABLET 1000 MG PO (16:50)
--- NOTE | 2025-04-25 23:50 | PM.DS ---
DS: Admitting Diagnosis Discharge Date 04/03/25 Admitting Diagnosis incomplete miscarriage DS: Discharge Diagnosis Discharge Diagnosis (1) Incomplete miscarriage: Code(s): O03.4 - Incomplete spontaneous without complication Status: Acute DS: Summary Hospital Course Hospital Course: 20-year-old female who presented emergency department with incomplete miscarriage. Suction D&C was performed due to excessive blood loss. She was observed for a period time after D&C. She was stable. Time Spent with Patient Time attestation: Total time spent providing and/or coordinating discharge services: DS: Data Data Completed and Pending Completed studies during hospitalization: Pending at discharge 04/03/25 15:16 Surgical [PTH] Routine Discharge Plan Discharge Attending physician on discharge: Sher Mustafa Consulting providers: Valente Gonzalez; Jhonatan Olvera; Carmelo Rodriguez V. Discharging Clinician: Sher Mustafa Patient Disposition: Home Activity: unlimited and as tolerated Diet: as tolerated and regular Discharge Instructions: Education: Mom and Baby Guide Given to: Follow-Up: Call your delivering provider's office for an appointment to be seen in: Mom and baby should come to the [facility] for the follow-up appointment. Appointment Date/Time: at What to expect at your follow-up visit: Call [phone] if you are unable to keep your appointment time. BREAST CARE: * Wear a snug supportive bra. * For engorgement discomfort: Breast Feeding: * Apply warm moist washcloths * Express milk as needed to relieve engorgement * Wear loose clothing Bottle Feeding: * May apply ice packs * For sore nipples: * Identify correct latch-on * Apply warm moist washcloths before and after nursing * Air dry nipples after nursing * May apply Lansinoh cream to nipples ABDOMINAL INCISION: (if applicable) PERINEAL CARE: * Until bleeding stops, use your vikki bottle after urinating * Change your pad frequently throughout the day * You may take sitz baths several times a day (fill your bathtub with warm water and soak for 20 minutes.) Do NOT bathe in the water * No tub baths until seen by your physician - You may shower ACTIVITY: * Rest as much as possible. * Do not put anything into the vagina. No douching, tampons, or sexual activity until seen by physician. NOTIFY PHYSICIAN IF YOU HAVE ANY QUESTIONS OR IF ANY OF THE FOLLOWING SYMPTOMS OCCUR: * If your vaginal bleeding becomes foul smelling. * If your vaginal bleeding becomes more heavy than a period or if your bleeding changes from pink to bright red. However, you may pass an occasional walnut-sized clot once or twice for the first week . * If you experience a sharp, shooting pain in you calves. * If you discover a hard, reddened area on your breast or if you experience flu-like symptoms. DIET: * Eat regular, well-balanced meals. * Drink plenty of fluids daily. . Patient Language: Panamanian Stand Alone Forms: General Discharge Information, Work/School Release IP Follow-up/Referrals: Sher Mustafa MD [Physician, [employer]ER] Discharge Medications: No Action No Home Medications Date of admission: 04/03/25 03:26 Primary Care Provider: PHYSICIAN,QUALITY PROCESS ENGINEER Admitting Provider: Sher Mustafa Attending physician on admission: Sher Mustafa Condition: Stable
== END 2025-04-03 17:10 | disposition home or self-care (01) ==
LOC: ANHED 22:25 → ANHOBPP 04-03 03:43
PROVIDERS: Admitting Provider Obstetrics & Gynecology; Emergency Provider Registered Nurse; Visit Provider Obstetrics & Gynecology
PROC: (CPT 59812; principal; 2025-04-03 15:00)
DX: O03.4 Incomplete spontaneous abortion without complication (principal)
CPT/HCPCS: 59812; 36415; 74177; 76801; 76817; 80053; 81001; 81025; 84702; 85025; 85461; 85610; 85730; 86850; 86900; 86901; 88305; 96374; 96375; 99285; A9270; G0378; J1885; J2003; J2250; J2270; J2405; J2704; J7030; J7120; Q9967